=== PATIENT | male | born 1950 | race African-American/Black ===

== ENCOUNTER 2017-11-14 06:00 | Day surgery (SDC) | payer MEDICARE, OTHER ==
[~2017-11-14] VITALS: Ht 175.3 cm; Wt 96.6 kg
[~2017-11-14 06:00] MED LIST: ECASA81 PO; HYDR25TA5 PO; INSU1.2I SQ; LOVA20TA PO; METO1TAB9 PO; NOVOLOGSS SQ; VALS1TAB65 PO
[2017-11-14] MEDS ORDERED: IOHEXOL 350 MG/ML 50 ML BTL (for Cath Lab) OTHER ONE (06:01)
[2017-11-14] MEDS ORDERED: ASPIRIN 81 MG CHEW TAB PO SCH (06:15)
[2017-11-14] MEDS ORDERED: NOVONP2 SQ (06:50)
[2017-11-14] MEDS ORDERED: AMLO10TA2 PO (06:50)
[2017-11-14 06:51] VITALS: BP 169/92; PULSE 58; RESP 18; TEMP 98; O2SAT 100
[2017-11-14 07:26] LABS: AUTOMATED NEUTROPHIL # 3.1 TH/MM3 (1.8-7.7); BASOPHIL % 0.8 % (0.0-2.0); EOSINOPHIL # 0.3 TH/MM3 (0-0.4); EOSINOPHIL % 5.6 % (0.0-4.0); HEMATOCRIT 35.5 % (39.0-51.0); HEMOGLOBIN 11.4 GM/DL (13.0-17.0); LYMPH % 30.5 % (9.0-44.0); LYMPHOCYTE # 1.8 TH/MM3 (1.0-4.8); MEAN CELL VOLUME 87.2 FL (80.0-100.0); MEAN CORPUSCULAR HGB CONC 32.1 % (32.0-36.0); MEAN PLATELET VOLUME 9.5 FL (7.0-11.0); MONO % 10.8 % (0.0-8.0); MONOCYTE # 0.6 TH/MM3 (0-0.9); NEUT % 52.3 % (16.0-70.0); PLATELET COUNT 246 TH/MM3 (150-450); RED BLOOD COUNT 4.08 MIL/MM3 (4.50-5.90); RED CELL DISTRIBUTION WIDTH 12.9 % (11.6-17.2)
[2017-11-14 07:32] LABS: PROTHROMBIN TIME - PATIENT 9.9 SEC (9.8-11.6)
[2017-11-14 07:47] LABS: CALCIUM 9.2 MG/DL (8.5-10.1); CREATININE 1.33 MG/DL (0.60-1.30)
[2017-11-14] MEDS ORDERED: HEPARIN-NS/PF FLUSH BAG 2,000 ML IV FLUSH ONE (08:11)
[2017-11-14] MEDS ORDERED: MIDAZOLAM HCL 2 MG/2 ML VIAL ONE (08:13)
--- NOTE | 2017-11-14 08:59 | CATHPROC ---
[employer] HIS Report Study Information Study Number Admission Scheduled Start Study Start [id number] Nov 14 2017 6:00AM 11/14/2017 Nov 14 2017 8:08AM [place] [facility] Cardiac Catheterization Admit Source Facility Department Other [facility] - Soap Drier Operator Physician and Clinical Staff Initial Yassine Wells Apprentice Plant Attendant Candi James,RN Recorder Betzaida Delacruz ,RT(R) Scrub Ashely Aparicio,RT(R) Procedures Performed Procedure Location (Site) Vessel Name Coronary Angiograms LCA Left Coronary Coronary Angiograms RCA Right Coronary L Heart Cath LV Gram-hand inj. LV LV Ventricle Equipment Time Commodity Loan Clerk Description Size Mfg Part Number Used/Scraped TRANSDUCER, TRUWAVE [id number] 08:16 VALLEJO MAURICE * Used W/STOCKCOCK *[id number] [id number] *[id number] *[id number] 08:16 [employer] PACK, CCL CUSTOM * Used *[id number] 08:16 [employer] PACER PEN, SKIN DUAL W/ RULER * Used *[id number] 08:16 [employer] WIRE, 3MMJ .035 180CM 180CM Used *[id number] 08:16 NAMIC MANIFOLD, 4 PORT * Used *[id number] 08:16 [employer]ED OMNIPAQUE, 350 MG, 150ML 150ML [id number] 08:16 [employer] BL[employer],WARM AIR CCL * Used *[id number] 08:16 TERUMO MEDICAL SHEATH, FR4 TERUMO (10CM) FR 4 Used *[id number] History: Current Medications Medication Dosage/Unit Route Frequency Last Date/Time Taken ASA Statins (any) DIOVAN History: Allergies Allergy Reaction No Known Allergies History: Risk Factors Family History of Hypertension Dyslipidemia Previous IL Previous Heart Failure Premature CAD Yes Yes Yes No No Prior Valve Prior PCI Prior CABG Surgery No No No Cerebrovascular Peripheral Artery Chronic Lung On Dialysis Diabetes Diabetes Therapy Disease Disease Disease No No No No Yes Insulin History: Stress Tests Stress or Imaging Studies Performed No History: Other Current Smoker No Labs Hgb (g/dl) Hct (%) WBC (l/cumm) Platelets (thousands) 11.60-17.00 35.00-51.00 4.00-11.00 150.00-450.00 11.4 35.5 6 246 Glucose (mg/dl) BUN (mg/dl) Creatinine (mg/dl) BUN:Creatinine (1:x) 74.00-106.00 7.00-18.00 0.50-1.30 10.00-20.00 119 26 1.3 20 Na (meq/l) K (meq/l) 136.00-145.00 3.50-5.10 139 4.2 INR (PTT:PT) 0.90-1.10 1 CPK-MB (ng/ML) 0.50-3.60 Not Drawn Medication Medication Total Dose (Bolus/Oral) Medication Total Dosage/Unit 1% XYLOCAINE 10 mL Medications (Bolus/Oral) Medication Time Given Dosage/Unit Administered By Reason 1% XYLOCAINE 11/14/2017 8:42:05 AM 10 mL Yassine Hsu 10 mL 1% XYLOCAINE given in lab by Yassine Hsu via Subcutaneous. Ordered by Yassine Hsu. Medication (Drip) Medication Time Given Dosage/Unit Concentration/Unit Diluent (ml) Solution IV Bolus 11/14/2017 8:40:00 AM 500 mL (Bolus) 500 NaCl .9 500 mL (Bolus) IV Bolus given in lab by Candi James, RN in Left Wrist via Peripheral IV. Using NaC l .9. Ordered by Yassine Hsu. IV Solutions 11/14/2017 8:08:59 AM 50 mL (IV) NaCl .9 Patient arrived on IV Solutions in Left Wrist via Peripheral IV. Pump/Drip Flow using NaCl .9. Initial Case Assessment Cardiovascular HR NIBP Chest Pain 56 150/85 0 Edema Present Skin color Skin None Normal Warm Dry Circulatory - Right Pulses Dorsalis Pedis Femoral 3 3 Scale (0,1,2,3,4,d) Circulatory - Left Pulses Dorsalis Pedis Femoral 3 3 Scale (0,1,2,3,4,d) Neurological State Oriented to time-place- Alert Moves all extremities person Respiration - General Respiration Rate SpO2 (%) (B/min) 14 100 Final Case Assessment Cardiovascular HR NIBP Chest Pain 57 155/88 0 Edema Present Skin color Skin None Normal Warm Dry Circulatory - Right Pulses Femoral 3 Scale (0,1,2,3,4,d) Circulatory - Left Pulses Femoral 3 Scale (0,1,2,3,4,d) Neurological State Oriented to time-place- Alert Moves all extremities person Respiration - General Respiration Rate SpO2 (%) (B/min) 15 100 Chronological Log Time Study Chronological Log 8:08:42 Patient arrived via Bed. 8:08:43 Patient Name, D.O.B, / Armband Verified By R.N. 8:08:43 Consent signed by the physician and the patient and verified by the Soap Drier Operator staff. 8:08:44 Verbal Stimulation=2 Physical Stimulation=2 Airway=2 Respiration=2 TOTAL=8. (0=absent, 1=li mited, 2=present) 8:08:51 Patient has been NPO for More than 6Hrs. 8:08:53 Skin Breakdown- none per patient 8:08:54 Patient Warmer Placed on the Table. 8:08:55 Michaelle Prominences Protected 8:08:57 A # 20 IV was noted in the Wrist (left). Grade = 0 8:08:59 Patient arrived on IV Solutions in Left Wrist via Peripheral IV. Pump/Drip Flow using NaCl .9. 8:09:01 History and physical on the chart or being dictated. Assessment: Initial Case, HR=56 BPM, TAQU=889/85 mmhg, Chest Pain=0, Edema=None, Color=Normal, Skin = Warm, Dry Right Pulses: Devon Ped=3, Femoral=3 8:09:03 Left Pulses: Devon Ped=3, Femoral=3 Neurological: State=Alert, Ox3, FRASER Respiration: Resp=14 B/min, XuP6=222 % Vitals capture started with the following parameters, Patient=Adult, Interval=5 min, Initial Pr zmovca=895 mmHg, 8:12:48 Deflation Rate=5 mmHg, Cuff placed on Left Arm 8:13:52 HR=56 bpm, KLOP=373/85 mmhg, StV3=381.0 %, Resp=12 B/min, Pain=0, Adair=10, Roblero=2 8:14:44 Reference ECG taken 8:16:11 Bilateral groins prepped with 2% chlorhexidine, and draped after a 3 minute waiting time. 8:19:01 HR=57 bpm, PYHC=495/87 mmhg, SpO2=99.0 %, Resp=23 B/min, Pain=0, Adair=10, Roblero=2 8:21:42 Pressure channel 1 zeroed. 8:23:17 MD paged 8:23:27 HR=57 bpm, SYWQ=581/90 mmhg, JxX7=180.0 %, Resp=14 B/min, Pain=0, Adair=10, Roblero=2 8:25:36 MD responded 8:29:07 HR=54 bpm, PCNO=202/81 mmhg, SpO2=99.0 %, Resp=20 B/min, Pain=0, Adair=10, Roblero=2 8:33:30 HR=53 bpm, IXWQ=820/82 mmhg, SpO2=99.0 %, Resp=13 B/min, Pain=0, Adair=10, Roblero=2 8:34:52 MD arrived. 8:38:31 HR=53 bpm, DUVU=481/84 mmhg, SpO2=99.0 %, Resp=13 B/min, Pain=0, Adair=10, Roblero=2 500 mL (Bolus) IV Bolus given in lab by Candi James, RN in Left Wrist via Peripheral IV. Usin g NaCl .9. Ordered by 8:40:00 Yassine Hsu. Time Out. Correct patient, correct procedure, correct physician, power injector not loaded with contrast with surgical 8:41:34 team present. Time Out Concurred by MD and individual staff in procedure. 8:41:50 Case Start 8:42:05 10 mL 1% XYLOCAINE given in lab by Yassine Hsu via Subcutaneous. Ordered by Ranjeet Hsu rthur. 8:43:08 Access site was Right Femoral Artery. 8:43:19 A SHEATH, FR4 TERUMO (10CM) FR 4 was advanced into the Fem Art (right) using the Percutaneou s technique. 8:43:32 HR=56 bpm, ORWM=194/75 mmhg, SpO2=98.0 %, Resp=15 B/min, Pain=0, Adair=10, Roblero=2 A JR 4.0 INFINITI CATHETER FR 4 was advanced over a wire. OMNIPAQUE, 350 MG, 150ML 150ML was use d for 8:44:33 injections. 8:45:47 The LV was manually injected with 5 cc's and visualized. OMNIPAQUE, 350 MG, 150ML 150ML used . Recorded Pressure: Ao, HR=58, Condition=Condition 1 8:46:12 (Aorta) Ao 160/76/109 8:46:40 The RCA was injected and visualized at various angles. OMNIPAQUE, 350 MG, 150ML 150ML used. 8:46:49 Catheter was removed A JL 4.0 INFINITI CATHETER FR 4 was advanced over a wire. OMNIPAQUE, 350 MG, 150ML 150ML was use d for 8:47:22 injections. 8:48:24 The LCA was injected and visualized at various angles. OMNIPAQUE, 350 MG, 150ML 150ML used. 8:48:29 HR=58 bpm, JFRL=444/88 mmhg, SpO2=99.0 %, Resp=14 B/min, Pain=0, Adair=10, Roblero=2 8:49:44 Catheter was removed 8:50:06 Case End Assessment: Final Case, HR=57 BPM, NTSE=896/88 mmhg, Chest Pain=0, Edema=None, Color=Normal, Ski n = Warm, Dry Right Pulses: Femoral=3 8:50:13 Left Pulses: Femoral=3 Neurological: State=Alert, Ox3, FRASER Respiration: Resp=15 B/min, OcT2=641 % 8:50:15 Catheter(s) removed without difficulty 8:50:16 Sheath(s) left in place, will be removed in Holding Area 8:50:21 Sterile dressing applied to site 8:50:22 No case complications noted. 8:50:23 Cine recording checked. 8:50:25 Bedside Report will be given. 8:50:28 Contrast Scanned 8:50:32 A Left Heart Cath was performed. 8:53:45 Vitals capture stopped. 8:57:14 Patient moved to [facility] End Study - Contrast Media Used In Study Contrast Total Opened (mL) Total Used (mL) Total Wasted (mL) Omnipaque 40 40 0 End Study - Maximum Contrast Load Max Contrast Load (mL) 371.5 End Study - Radiation Exposure Fluoro Time (minutes) 1.1 End Study - Patient Disposition Complications Transferred To Interventional Outcome No Telemetry Bed No attempt made
[2017-11-14] MEDS ORDERED: SODIUM CHLORIDE 0.9% FLUSH 10 ML FLUSH IV FLUSH PRN (09:00)
[2017-11-14] MEDS ORDERED: SODIUM CHLORIDE 0.9% FLUSH 10 ML FLUSH IV FLUSH SCH (09:00)
[2017-11-14] MEDS ORDERED: MISC INFORMATION XX ONE (09:00)
[2017-11-14] MEDS ORDERED: BACITRACIN OINT 0.9 GM PKT TOP ONE (09:00)
--- NOTE | 2017-11-14 18:08 | MA ---
cc: YASSINE IGLESIAS M.D. DATE: 11/14/2017. PROCEDURES PERFORMED: 1. Left heart catheterization. 2. Left ventriculography. 3. Coronary angiography. INDICATIONS FOR THE PROCEDURE: Unstable angina. [place] Cardiovascular Society class I angina. Diabetes mellitus. Coronary artery disease. DESCRIPTION OF THE PROCEDURE IN DETAIL: The patient was brought to the cardiac catheterization laboratory and prepped and draped in the usual sterile fashion. 10 cc of 1% lidocaine was used to locally anesthetize the right common femoral artery. A 4-Hungarian sheath was subsequently placed in the right common femoral artery. A 4-Hungarian JR-4, JL-4 catheters were used to perform left and right coronary angiography and left ventriculography. FINDINGS: The pressure waveforms were not determined in the left ventricle as the manometer was not functioning during the crossing of the aortic valve. Ejection fraction was 60%. The right coronary artery is dominant. There is significant focal segmental stenosis; however, the vessel is approximately 35 mm in the ostial proximal segment and then tapers fairly rapidly in the proximal segment to a 2.5 mm vessel. Mild disease in the proximal to mid segment up to 10% to 20% angiographically. Otherwise no significant focal stenosis. The left main coronary artery has no significant disease angiographically. The left circumflex vessel has no significant disease angiographically. The ramus intermedius vessel is a large vessel. 3.5 mm diameter. It trifurcates in the mid segment. There is no significant obstructive disease. The left anterior descending is transapical. It supplies the mid to distal inferior apical wall. There is mild disease in the proximal to mid segment up to 20% to 30% angiographically. CONCLUSIONS: 1. Angiographically mild two-vessel coronary artery disease in a right dominant system as detailed above. 2. Normal left ventricular systolic function with ejection fraction of 60%. 3. Recommend medical management of coronary artery disease with cardiac risk factor modification. 4. Note, the patient was given a liter of normal saline prior to the procedure. 5. The patient has been instructed by myself personally to follow up with me in the office on 11/17/17 for further evaluation and management. Yassine Iglesias MD C/DURGA /8:54 AM /5:39 PM
--- NOTE | 2017-11-14 23:44 | EKG ---
Date Performed: 11/14/2017 Time Performed: 06:46:00 PTAGE: 67 years EKG: Sinus bradycardia Normal ECG except for rate PREVIOUS TRACING : 11/06/2015 17.50 Compared to prior tracing, rate slower DOCTOR: Riccardo Bautista Interpretating Date/Time 11/14/2017 23:43:57
== END 2017-11-14 12:03 | disposition home or self-care (01) ==
LOC: HDOC 06:00 → HDIC 06:00 → HDOC 12:03
PROVIDERS: ATTEND Internal Medicine Interventional Cardiology
DX: I25.110 Atherosclerotic heart disease of native coronary artery with unstable angina pectoris (principal); I10 Essential (primary) hypertension; J45.909 Unspecified asthma, uncomplicated; G47.33 Obstructive sleep apnea (adult) (pediatric); E78.00 Pure hypercholesterolemia, unspecified; E11.9 Type 2 diabetes mellitus without complications; Z79.4 Long term (current) use of insulin
CPT/HCPCS: 80048; 85025; 85610; 93005; 93458; C1769; C1893; J1644; J2250; J3010; Q9967